=== PATIENT | male | born 1955 | race American Indian/Alaskan Native ===

== ENCOUNTER 2017-01-30 15:34 | Emergency (ER) | payer BC, OTHER ==
[2017-01-30 16:09] VITALS: TEMP 98.9
[2017-01-30] MEDS ORDERED: TDAP Vaccine 0.5 mL Syr IM ONE (16:32)
--- NOTE | 2017-01-30 16:38 | ED PDOC ---
Arrival/HPI - General Chief Complaint: Trauma Time Seen by Provider: 01/30/17 16:32 - History of Present Illness Narrative History of Present Illness (Text): 61 y/o M c PMHx HTN, not on AC, tetanus not UTD p/w head injury just prior to arrival. Patient states he was walking down stairs with his hands full and lost his balance and fell, hitting his head. He denies LOC, N/V, numbness, weakness. He states he did drink a little and that is why he is sleepy. He complains of pain in the neck and on the top of his scalp where he notes he has a laceration but denies pain elsewhere. Past Medical History - Cardiac Hx Cardiac Disorders: Yes Hx Hypertension: Yes - Pulmonary Hx Respiratory Disorders: No - Neurological Hx Neurological Disorder: No - HEENT Hx HEENT Disorder: No - Renal Hx Renal Disorder: No - Endocrine/Metabolic Hx Endocrine Disorders: No - Hematological/Oncological Hx Blood Disorders: No - Integumentary Hx Dermatological Disorder: No - Musculoskeletal/Rheumatological Hx Musculoskeletal Disorders: No - Gastrointestinal Hx Gastrointestinal Disorders: Yes Hx Colostomy: Yes (REVERSED) - Genitourinary/Gynecological Hx Genitourinary Disorders: No - Psychiatric Hx Psychophysiologic Disorder: No Hx Substance Use: No - Anesthesia Hx Anesthesia: Yes Family/Social History Family/Social History: No Known Family HX Smoking Status: Light Smoker < 10 Cigarettes Daily Hx Alcohol Use: Yes Frequency of alcohol use: Daily Hx Substance Use: No Allergies/Home Meds Allergies/Adverse Reactions: Allergies No Known Allergies Allergy (Verified 01/30/17 16:03) Home Medications: Home Meds Medication Instructions Recorded Confirmed Nifedipine [Nifedical Xl] 90 mg PO DAILY 12/24/14 01/30/17 Aspirin [Aspirin Chewable] 81 mg PO DAILY 01/07/16 01/30/17 Review of Systems - Physician Review All systems were reviewed & negative as marked: Yes - Review of Systems Constitutional: absent: Fevers Respiratory: absent: SOB Cardiovascular: absent: Chest Pain Physical Exam - Physical Exam Narrative Physical Exam (Text): Constitutional: No acute distress. Head: Normocephalic. Flap laceration to top of scalp 3cm x 2cm with mild active bleeding. No facial tenderness. Eyes: PERRL. EOMI without diplopia. ENT: Moist mucous membranes. Neck: Supple. No midline tenderness. Cardiovascular: Regular rate. Chest: No tenderness. Respiratory: Clear to auscultation bilaterally. GI: Soft. Nontender. Nondistended. Back: No CVA tenderness. Musculoskeletal: No tenderness or swelling of extremities. Pelvis stable. FROM x 4. Skin: No rash. Neurologic: Alert, no focal deficit. Motor 5/5 x 4. Vital Signs Temp Pulse Resp BP Pulse Ox 01/30/17 16:04 98.9 F 74 17 127/79 100 Medical Decision Making ED Course and Treatment: Update tetanus. Patient declined pain medication. CT Head and neck to rule out bleed/fracture. 01/30/17 17:06 PROCEDURE: CT HEAD WITHOUT CONTRAST. HISTORY: head injury COMPARISON: None available. TECHNIQUE: Axial computed tomography images were obtained through the head/brain without intravenous contrast. Radiation dose: Total exam DLP = 871.01 mGy-cm. This CT exam was performed using one or more of the following dose reduction techniques: Automated exposure control, adjustment of the mA and/or kV according to patient size, and/or use of iterative reconstruction technique. Patient motion somewhat limits evaluation. FINDINGS: HEMORRHAGE: No intracranial hemorrhage. BRAIN: No mass effect or edema. No CT evidence of acute territorial infarct. Mild cerebral volume loss. VENTRICLES: Unremarkable. No hydrocephalus. CALVARIUM: Unremarkable. PARANASAL SINUSES: Minimal mucosal thickening involving the maxillary sinuses. MASTOID AIR CELLS: Unremarkable as visualized. No inflammatory changes. OTHER FINDINGS: Soft tissue swelling and punctate foci of air in the right frontal vertex. IMPRESSION: No CT evidence of acute intracranial hemorrhage or acute territorial infarct. Acute infarction may be CT occult within first 24 hours. If a focal deficit persists, consider followup CT or MRI for further evaluation. Soft tissue swelling and punctate foci of air in the right frontal vertex. 01/30/17 18:30 PROCEDURE: CT Cervical Spine without contrast HISTORY: Trauma. COMPARISON: None available. TECHNIQUE: Axial computed tomography images were obtained of the cervical spine without the use of intravenous contrast. Coronal and sagittal reformatted images were created and reviewed. Radiation dose: Total exam DLP = 524.85 mGy-cm. This CT exam was performed using one or more of the following dose reduction techniques: Automated exposure control, adjustment of the mA and/or kV according to patient size, and/or use of iterative reconstruction technique. FINDINGS: VERTEBRAE: No definite acute fracture. No compressive deformity. No jumped facets. Significant loss of intervertebral disc space at multiple levels particularly at C5-C6. DISCS/SPINAL CANAL/NEURAL FORAMINA: C2-C3: Small posterior disc osteophyte complex with mild narrowing of both neural foramen. C3-C4: Small posterior disc osteophyte complex with mild narrowing of both neural foramen. C4-C5: Moderate-sized posterior disc osteophyte complex with significant narrowing of both neural foramen particularly on the right. C5-C6: Significant disc osteophyte complex in the posterior aspect with significant narrowing of both neural foramen. Multiple punctate foci of air associated most likely on a degenerative basis. C6-C7: No significant narrowing of bilateral neural foramen. PARASPINAL SOFT TISSUES: Unremarkable. OTHER FINDINGS: Biapical pleural parenchymal thickening noted. IMPRESSION: No definite acute fracture. Extensive multilevel degenerative changes as described above. Patient tolerated closure well. Steady gait. Will discharge, return to ER for worsening pain, vomiting, confusion, fever, discharge of pus, redness. Otherwise , return in 10 days for staple removal. - RAD Interpretation Radiology Orders: 01/30/17 16:32 CERVICAL SPINE W/O CONTRAST [CT] Stat HEAD W/O CONTRAST [CT] Stat - Medication Orders Current Medication Orders: Discontinued Medications Lidocaine HCl (Lidocaine 1% (20ml)) 2 ml IJ STAT STA Stop: 01/30/17 17:38 Morphine Sulfate (Morphine) 4 mg IM STAT STA Stop: 01/30/17 16:56 Tetanus/Reduced Diphtheria/Acell Pertussis (Boostrix Vaccine Inj) 0.5 ml IM .ONCE ONE Stop: 01/30/17 16:33 Disposition/Present on Arrival - Present on Arrival Any Indicators Present on Arrival: No History of DVT/PE: No History of Uncontrolled Diabetes: No Urinary Catheter: No History of Decub. Ulcer: No History Surgical Site Infection Following: None - Disposition Have Diagnosis and Disposition been Completed?: Yes Diagnosis: Scalp laceration, Head injury Disposition: HOME/ ROUTINE Disposition Time: 18:30 Patient Plan: Discharge Condition: STABLE Discharge Instructions (ExitCare): Staple Care (ED), Head Injury (ED) Additional Instructions: Return in 10 days for removal of your letty. Referrals: Roger Mccarthy MD [Primary Care Provider] - Follow up with primary Laceration - Laceration Repair No standard instances Wound Length (In cm): 3cm x 2cm Description Of Wound: Linear, Clean Wound Cleansed With: Sterile Saline Anesthesia: Lidocaine 1% Wound Examination: Irrigated With Saline, No FB With Wound Exploration Wound Closure: Letty (7)
[2017-01-30] MEDS ORDERED: Morphine 4 mg/ml ISec IM STA (16:55)
--- NOTE | 2017-01-30 17:03 | CT ---
PROCEDURE: CT HEAD WITHOUT CONTRAST. HISTORY: head injury COMPARISON: None available. TECHNIQUE: Axial computed tomography images were obtained through the head/brain without intravenous contrast. Radiation dose: Total exam DLP = 871.01 mGy-cm. This CT exam was performed using one or more of the following dose reduction techniques: Automated exposure control, adjustment of the mA and/or kV according to patient size, and/or use of iterative reconstruction technique. Patient motion somewhat limits evaluation. FINDINGS: HEMORRHAGE: No intracranial hemorrhage. BRAIN: No mass effect or edema. No CT evidence of acute territorial infarct. Mild cerebral volume loss. VENTRICLES: Unremarkable. No hydrocephalus. CALVARIUM: Unremarkable. PARANASAL SINUSES: Minimal mucosal thickening involving the maxillary sinuses. MASTOID AIR CELLS: Unremarkable as visualized. No inflammatory changes. OTHER FINDINGS: Soft tissue swelling and punctate foci of air in the right frontal vertex. IMPRESSION: No CT evidence of acute intracranial hemorrhage or acute territorial infarct. Acute infarction may be CT occult within first 24 hours. If a focal deficit persists, consider followup CT or MRI for further evaluation. Soft tissue swelling and punctate foci of air in the right frontal vertex.
[2017-01-30] MEDS ORDERED: Lidocaine 1% Inj (20ml) IJ STA (17:37)
--- NOTE | 2017-01-30 18:25 | CT ---
PROCEDURE: CT Cervical Spine without contrast HISTORY: Trauma. COMPARISON: None available. TECHNIQUE: Axial computed tomography images were obtained of the cervical spine without the use of intravenous contrast. Coronal and sagittal reformatted images were created and reviewed. Radiation dose: Total exam DLP = 524.85 mGy-cm. This CT exam was performed using one or more of the following dose reduction techniques: Automated exposure control, adjustment of the mA and/or kV according to patient size, and/or use of iterative reconstruction technique. FINDINGS: VERTEBRAE: No definite acute fracture. No compressive deformity. No jumped facets. Significant loss of intervertebral disc space at multiple levels particularly at C5-C6. DISCS/SPINAL CANAL/NEURAL FORAMINA: C2-C3: Small posterior disc osteophyte complex with mild narrowing of both neural foramen. C3-C4: Small posterior disc osteophyte complex with mild narrowing of both neural foramen. C4-C5: Moderate-sized posterior disc osteophyte complex with significant narrowing of both neural foramen particularly on the right. C5-C6: Significant disc osteophyte complex in the posterior aspect with significant narrowing of both neural foramen. Multiple punctate foci of air associated most likely on a degenerative basis. C6-C7: No significant narrowing of bilateral neural foramen. PARASPINAL SOFT TISSUES: Unremarkable. OTHER FINDINGS: Biapical pleural parenchymal thickening noted. IMPRESSION: No definite acute fracture. Extensive multilevel degenerative changes as described above.
[2017-01-30 18:56] VITALS: BP 125/71; PULSE 69; RESP 18; O2SAT 99
== END 2017-01-30 19:25 | disposition home or self-care (01) ==
LOC: ED 15:34
DX: S01.01XA Laceration without foreign body of scalp, initial encounter (principal); S09.90XA Unspecified injury of head, initial encounter; W10.9XXA Fall (on) (from) unspecified stairs and steps, initial encounter; I10 Essential (primary) hypertension; Z23 Encounter for immunization
CPT/HCPCS: 12002; 70450; 72125; 90471; 90715; 96372; 99284; J2270